=== PATIENT | male | born 1980 | race Caucasian/White ===

== ENCOUNTER 2018-11-04 12:41 | Day surgery (SDC) | payer MEDICARE ==
[~2018-11-04 12:41] MED LIST: BUPIVACAINE HCL 0.25% (2.5MG/ML) PF 30 ML VIAL IJ ONE; HYDROmorphone HCL/PF 1 MG/ML VIAL ONE; IOHEXOL 240 MG/ML BOTTLE 50 ML ONE; LACTATED RINGERS 1,000 ML IV.SOLN IV ONE; LIDOCAINE HCL 1%/EPI. (1:100,000) MDV 20ML VIAL IJ ONE; MIDAZOLAM HCL 2 MG/2 ML VIAL ONE; ceFAZolin SODIUM 1 GM VIAL ONE; fentaNYL CITRATE/PF 100 MCG/2 ML INJ. ONE
[2018-11-04] MEDS ORDERED: HYDROmorphone HCL/PF 1 MG/ML VIAL ONE ×2 (15:26→15:29)
== END 2018-11-04 16:05 | disposition home or self-care (01) ==
LOC: OPSURG 12:41
PROVIDERS: ATTEND Physical Medicine & Rehabilitation
DX: M54.5 Low back pain (principal)
CPT/HCPCS: 62290; 72295; J0690; J1170; J2250; J3010; J7120

== ENCOUNTER 2019-02-13 05:06 | Inpatient (IN) | payer MEDICARE ==
[2019-02-13] MEDS ORDERED: BACITRACIN 50,000 UNIT VIAL IR ONE (08:48)
[2019-02-13] MEDS ORDERED: LABETALOL HCL 20 MG/4 ML SYRINGE IV ONE ×2 (08:48→11:56)
[2019-02-13] MEDS ORDERED: MIDAZOLAM HCL 2 MG/2 ML VIAL ONE (08:48)
[2019-02-13] MEDS ORDERED: LIDOCAINE HCL 2% PF 100MG/5ML VIAL IJ ONE (08:48)
[2019-02-13] MEDS ORDERED: LACTATED RINGERS 1,000 ML IV.SOLN IV ONE ×2 (08:48)
[2019-02-13] MEDS ORDERED: SEVOFLURANE 250 ML LIQUID IH ONE (08:48)
[2019-02-13] MEDS ORDERED: ceFAZolin SODIUM 1 GM VIAL ONE (08:48)
[2019-02-13] MEDS ORDERED: DEXAMETHASONE SODIUM PHOSPHATE 10 MG/ML VIAL ONE (08:48)
[2019-02-13] MEDS ORDERED: THROMBIN (RECOMBINANT) 20,000 UNIT VIAL TP ONE (08:48)
[2019-02-13] MEDS ORDERED: SUGAMMADEX SODIUM 200 MG/2 ML VIAL IV ONE (08:48)
[2019-02-13] MEDS ORDERED: ONDANSETRON HCL/PF 4 MG/ 2ML VIAL ONE (08:48)
[2019-02-13] MEDS ORDERED: GELATIN SPONGE,ABSORB/PORCINE (SIZE 100) 1 EACH SPONGE TP ONE (08:48)
[2019-02-13] MEDS ORDERED: HYDROmorphone HCL/PF 2 MG/ML VIAL ONE (08:48)
[2019-02-13] MEDS ORDERED: ROCURONIUM BROMIDE 10 MG/ML 5ML VIAL ONE (08:48)
[2019-02-13] MEDS ORDERED: PROPOFOL 200 MG/20 ML VIAL IV ONE (08:48)
[2019-02-13] MEDS ORDERED: fentaNYL CITRATE/PF 100 MCG/2 ML INJ. ONE ×2 (08:48→11:36)
[2019-02-13] MEDS ORDERED: 0.9 % SODIUM CHLORIDE 1,000 ML IV SCH ×2 (13:00→13:24)
[2019-02-13] MEDS ORDERED: MORPHINE SULFATE 4 MG/ML VIAL IVP PRN ×2 (13:13→13:24)
[2019-02-13] MEDS ORDERED: ONDANSETRON HCL/PF 4 MG/ 2ML VIAL IVP PRN ×2 (13:13→13:30)
[2019-02-13] MEDS ORDERED: MORPHINE SULFATE 4 MG/ML VIAL IV PRN (13:38)
[2019-02-13] MEDS ORDERED: PROMETHAZINE HCL 25 MG in 0.9 % SODIUM CHLORIDE 50 ML IV PRN (13:38)
[2019-02-13 13:47] VITALS: BMI 74.8
[2019-02-13] MEDS ORDERED: ACETAMINOPHEN 500 MG TABLET ONE (13:52)
[2019-02-13] MEDS ORDERED: ACETAMINOPHEN 500 MG TABLET PO PRN (14:08)
[2019-02-13] MEDS: 0.9 % SODIUM CHLORIDE 1,000 ML IV SCH ×2 (14:11→22:24)
[2019-02-13] MEDS: oxyCODONE HCL 5 MG TABLET PO PRN (15:49)
[2019-02-13 18:19] LABS: BASOPHILS % 0.3 % (0.0-1.5); NEUTROPHILS # 12.6 # k/uL (1.4-7.7)
[2019-02-14] MEDS: oxyCODONE HCL 5 MG TABLET PO PRN ×2 (01:51→09:52)
[2019-02-14] MEDS: 0.9 % SODIUM CHLORIDE 1,000 ML IV SCH (02:52)
[2019-02-14] MEDS ORDERED: ceFAZolin SODIUM 1 GM in 0.9 % SODIUM CHLORIDE 50 ML IV SCH (03:30)
[2019-02-14 05:32] LABS: BASOPHILS % 0.5 % (0.0-1.5)
[2019-02-14 05:33] LABS: NEUTROPHILS # 10.5 # k/uL (1.4-7.7)
--- NOTE | 2019-02-14 07:05 | Discharge Summary ---
Discharge Summary - Discharge [facility] Admission Date: 02/13/19 Discharge Date: 02/14/19 Discharge To: Home History of Present Illness: Patient is a 38-year-old male s/p Lumbar Total Disc Replacement of L4/5. Patient states that he has had low back pain for a very long time. He states that he has been treated with steroid injections, discogram, and pain meds. He will be admitted for pain control, neurovasculars, and monitoring d/t blood loss in surgery. Condition at Discharge: Stable Consultations this Visit: None Procedures this Visit: None Allergies/Adverse Reactions: Allergies Allergy/AdvReac Type Severity Reaction Status Date / Time No Known Allergies Allergy Verified 02/13/19 14:18 Patient Problems: Current Active Problems Problem Status Onset Back pain at L4-L5 level Acute Blood loss Acute Status post lumbar surgery Acute Discharge Summary: Patient has done great during admission- he has been up walking in the hallway without difficulty and independently- denies any numbness or pain to lower extremities. He is tolerating meals, has been urinating, and had a bowel movement. He would like to go home. He will continue to use incentive spirometer, take pain meds as directed, increase water intake, increase fiber, add a stool softener, ambulate often, no lifting over 10 pounds, and he will monitor for symptoms of infection at incision site. Hospital Course: IVF, IV pain meds, PT/OT, Incentive spirmotery; monitoring of CBC - Final Diagnosis (1) Blood loss Problems: Stable- able to go home Right or Left: Right (2) Status post lumbar surgery Problems: Stable; will receive verbal and written instructions pertaining to post lumbar surgery Right or Left: Right
--- NOTE | 2019-02-14 08:16 | History and Physical Report ---
History of Present Illnes - History of Present Illness Reason for Visit: S/P LTDR L4/5 History of Present Illness: Patient is a 38-year-old male s/p Lumbar Total Disc Replacement of L4/5. Patient states that he has had low back pain for a very long time. He states that he has been treated with steroid injections, discogram, and pain meds. He will be admitted for pain control, neurovasculars, and monitoring d/t blood loss in surgery. - Past Medical History Cardiac: Hyperlipidemia GASKET WINDER: Migraine Musculoskeletal: Chronic low back pain, Other (DDD) - Past Surgical History Past Surgical History: Other (RFA, discogram) - Past Family History Mother Family History: CAD - Past Social History Smoke: No (chewing tobacco) Alcohol: None Drugs: None Lives: With Family - Health Maintenance Health Maintenance: Cholesterol Influenza Vaccine: No Pneumonia Vaccine: No Resuscitation Status: Resusciation Status Resuscitation Status Full Code Review of Systems - Review of Systems Constitutional: negative: Fever, Chills Eyes: negative: pain ENT: negative: Ear Pain, Throat Pain Respiratory: negative: Shortness of Breath Cardiovascular: negative: Chest Pain, Light Headedness Gastrointestinal: Abdominal Pain (s/p anterior approach LTDR). negative: Nausea, Vomiting Genitourinary: negative: Dysuria Musculoskeletal: Back Pain Skin: negative: Rash Neurological: negative: Weakness - Medications/Allergies Allergies/Adverse Reactions: Allergies Allergy/AdvReac Type Severity Reaction Status Date / Time No Known Allergies Allergy Verified 02/13/19 14:18 Current Inpatient Medications: Current Inpatient Medications Acetaminophen (Tylenol Extra Strength) 500 mg PO Q4H PRN PRN Reason: MILD PAIN OR TEMP > 101 Stop: 03/15/19 14:07 Last Admin: 02/13/19 14:10 Dose: 500 mg Docusate Sodium (Colace) 100 mg PO BID [facility] Stop: 02/15/19 21:01 Last Admin: 02/14/19 07:58 Dose: 100 mg Cefazolin Sodium 1 gm/ Sodium (Chloride) 50 mls @ 100 mls/hr IV Q8H [facility] Stop: 02/14/19 11:59 Last Admin: 02/14/19 04:38 Dose: 100 mls/hr Sodium Chloride (Normal Saline) 1,000 mls @ 150 mls/hr IV Q8H [facility] Stop: 09/22/19 13:59 Last Admin: 02/14/19 02:52 Dose: 150 mls/hr Promethazine HCl 25 mg/ Sodium (Chloride) 51 mls @ 204 mls/hr IV Q6H PRN PRN Reason: Nausea / Vomiting Stop: 02/16/19 23:59 Morphine Sulfate () 4 mg IV Q2H PRN PRN Reason: Severe Pain (Score 8-10) Stop: 02/14/19 23:59 Last Admin: 02/13/19 18:12 Dose: 4 mg Ondansetron HCl (Zofran) 4 mg IVP Q6H PRN PRN Reason: Nausea / Vomiting Stop: 02/17/19 13:24 Oxycodone HCl (Percolone) 10 mg PO Q4 PRN PRN Reason: For Moderate Pain 5-7 Stop: 03/15/19 13:12 Last Admin: 02/14/19 01:51 Dose: 10 mg Exam - Exam Vital Signs: Vital Signs (72 hours) 02/13/19 02/13/19 02/13/19 12:37 12:41 13:08 Temperature 98.8 F 98.8 F 98.8 F Pulse Rate [ 97 H 97 H 95 H Left] Respiratory 18 18 18 Rate Blood Pressure 139/86 139/86 161/80 [Left Arm] O2 Sat by Pulse 96 96 95 Oximetry 02/13/19 02/13/19 02/13/19 13:46 13:58 14:00 Temperature 100.4 F H 98.8 F Pulse Rate [ 94 H 95 H Left] Respiratory 18 18 Rate Blood Pressure 138/71 142/70 [Left Arm] O2 Sat by Pulse 96 95 96 Oximetry 02/13/19 02/13/19 02/13/19 17:18 21:17 22:00 Temperature 98.3 F 99.5 F Pulse Rate [ 107 H 91 H Left] Respiratory 18 20 20 Rate Blood Pressure 145/84 110/60 [Left Arm] O2 Sat by Pulse 94 93 93 Oximetry 02/14/19 02/14/19 02/14/19 01:58 02:00 05:58 Temperature 100.1 F H Pulse Rate [ 104 H Left] Respiratory 20 20 20 Rate Blood Pressure 122/56 [Left Arm] O2 Sat by Pulse 97 97 Oximetry 02/14/19 06:00 Temperature 98.8 F Pulse Rate [ 86 Left] Respiratory 20 Rate Blood Pressure 131/67 [Left Arm] O2 Sat by Pulse 98 Oximetry General: Alert, Oriented to Person, Oriented to Place, Oriented to Time, Cooperative, Mild distress, Average Body Habits HEENT: Atraumatic, PERRLA, Mouth Mucous membr. moist/[place], Nose Mucous membr. moist/[place] Neck: Normal Range of Motion Carotids: No bruit Lungs: Clear to auscultation, Normal air movement, Speaks full Sentences Cardiovascular: Normal S1, Normal S2, Tachycardia Peripheral Edema: None Peripheral Pulses: 2+ Abdomen: Decreased Bowel Sounds Integumentary: Normal, [place], Warm, Dry, Other (abdominal incision) Extremities: No edema, Normal pulses, No tenderness/swelling Neurological: Normal gait (has already been up walking), Normal speech, Strength Equal Bilat, Normal tone Psych/Mental Status: Mental status NL, Mood NL, Appropriate Affect, Intact Judgment - Laboratory Results Laboratory Results: Laboratory Results 02/13/19 02/14/19 18:00 05:00 WBC 14.40 H 14.50 H RBC 4.47 3.85 L Hgb 13.8 11.7 L Hct 40.1 34.6 L MCV 90.0 90.0 MCH 30.8 30.3 MCHC 34.3 33.8 RDW 12.3 12.5 Plt Count 239 201 Neut % (Auto) 87.8 H 72.7 Lymph % (Auto) 7.5 L 17.7 [place] % (Auto) 3.3 8.2 Eos % (Auto) 1.1 0.9 Baso % (Auto) 0.3 0.5 Neut # (Auto) 12.6 H 10.5 H Lymph # (Auto) 1.1 2.6 [place] # (Auto) 0.5 1.2 H Eos # (Auto) 0.2 0.1 Baso # (Auto) 0.0 0.1 Assessment/Plan - Assessment/Plan (1) Status post lumbar surgery Status: Acute Current Visit: Yes Assessment: Neuovasculars intact x 4 extremities, ambulatory without assist; pain controlled; dressing to incision dry and intact Plan: Will monitor VS and Neurovasculars closely, Incentive spirometer to prevent resp. infection, SCDs while in bed; pain management; PT/OT (2) Back pain at L4-L5 level Status: Acute Current Visit: Yes Assessment: Pain controlled at this time Plan: Pain medication ordered (3) Blood loss Status: Acute Current Visit: Yes Assessment: Patient had blood loss of 800 during surgery; patient is doing well; denies any dizziness or lightheadedness; VSS Plan: Will repeat CBC at 18:00 and in the morning VTE Assessment - RISK FACTOR SCORE VTE RISK FACTOR SCORES: MAJOR SURGERY/ANESTHESIA TIME > 1 HOUR - RISK VTE LOW RISK: SCORE OF 1 OR LESS (RISK PROXIMAL DVT 0.4%) NO PROPHYLAXIS NEEDED (SCDs while in bed; will hold lovenox until 18:00)
[2019-02-14 08:43] VITALS: BP 103/55
[2019-02-14] MEDS ORDERED: DOCUSATE SODIUM 100 MG CAPSULE PO SCH (09:00)
--- NOTE | 2019-04-09 09:12 | Operative Note ---
PROCEDURE DATE: 02/13/2019 PREOPERATIVE DIAGNOSIS: Degenerative disc disease, L4-5. POSTOPERATIVE DIAGNOSIS: Degenerative disc disease, L4-5. PROCEDURES PERFORMED: 1. Retroperitoneal exploration left side with exposure of the anterior lumbar spine at L4-5. 2. Isolation, ligation and division of the left lumbar vein for exposure of the anterior lumbar spine at L4-5. 3. Venolysis of the vena cava, left and right common iliac veins for exposure of the anterior lumbar spine at L4-5. 4. Arteriolysis of the aorta, left and right common iliac arteries for exposure of the anterior lumbar spine at L4-5. 5. Radical anterior lumbar discectomy for herniated nucleus pulposus, L4-5. 6. Insertion of lumbar total disc replacement arthroplasty at the L4-5 level. 7. Intraoperative fluoroscopy and interpretation for needle placement. SURGEON: Cesar Christiansen Jr., M.D. NUT SHELLER: ESTUARDO Mtz BC ANESTHESIA: General. COMPLICATIONS: None. CONDITION FOLLOWING THE PROCEDURE: Good. OPERATIVE FINDINGS: This gentleman has severe degenerative disc disease and positive discography. He has failed conservative treatment for a prolonged period of time and has been weighing a decision regarding arthroplasty versus fusion. He has elected arthroplasty which is carried out today with an extra- large implant which was found to fit well and in the midline. DESCRIPTION OF PROCEDURE: The patient was taken to the operating room and anesthesia induced. In the supine position, the abdomen was thoroughly scrubbed and sterilely prepped and draped. Radiographic azul was made representing the extended center line of the L4-5 disc space. Centered on this location, a 3.5 cm incision was made vertically. Subcutaneous tissue was dissected with electrocautery until the rectus fascia was identified. Just to the left of midline, the rectus fascia was divided superiorly and inferiorly. The rectus muscle was then retracted on the left side to the side and anteriorly, revealing the posterior rectus sheath. At the posterolateral corner of the rectus sheath, the retroperitoneal space was entered and the peritoneum began to be swept superiorly and to the right side. The psoas muscle was encountered and protected. X-rays were taken to confirm localization at the L4-5 level. Retraction of the vena cava, left and right common iliac arteries and veins, and the aorta then began to be retracted to the right side to reveal the disc space at L4-5. It was noted that the L5 left lumbar vein was a restricting structure, thus it was ligated with 2-0 silk and double-clamped before dividing. Once it was divided, there was sufficient mobilization of the left common iliac vein to allow complete retraction and exposure of the intervertebral disc space to be allowed. A midline marker was made and midline was determined and marked with electrocautery on the vertebral body. Electrocautery was then used to perform an annulotomy. Pituitary rongeurs were then used to effect a radical discectomy. Distraction was then made upon the disc space and the endplates were completely curettaged until no cartilage remained. Posteriorly, a combination of curettes and Kerrison rongeurs were used to remove the overhanging osteophytes and to remove the recurrent herniated nucleus pulposus at L4-5. With this accomplished, a sizing device was placed and it was determined a large footplate implant would be required, along with a 10 mm spacer. This was then assembled on the insertion device and driven into position as determined radiographically. The insertion device was removed and copious irrigation carried out prior to placing Gelfoam over the disc space. With the Gelfoam in place, the retractors were gradually removed and the posterior rectus sheath was swept back into its normal position. The anterior rectus sheath was then sutured shut with 0 PDS, 3-0 Vicryl approximated the subcutaneous tissue, and Dermabond approximated the epithelium. The patient then received a dressing, was awakened and taken to the recovery room in good condition. CESAR CHRISTIANSEN JR., M.D. IRINA/stanley (Please copy [facility] provider when applicable) Job #[id number] LINA
== END 2019-02-14 10:30 | disposition home or self-care (01) | DRG 518 ==
LOC: OPSURG 05:06 → SOUTH 12:30
PROVIDERS: ADMIT Nurse Practitioner Family; ATTEND Nurse Practitioner Family
PROC: 0SR20JZ Replacement of Lumbar Vertebral Disc with Synthetic Substitute, Open Approach (ICD-10-PCS; principal; 2019-02-13)
DX: M51.26 Other intervertebral disc displacement, lumbar region (principal); M51.36 Other intervertebral disc degeneration, lumbar region; E78.5 Hyperlipidemia, unspecified; G43.909 Migraine, unspecified, not intractable, without status migrainosus; M19.90 Unspecified osteoarthritis, unspecified site; F17.220 Nicotine dependence, chewing tobacco, uncomplicated; Z79.899 Other long term (current) drug therapy
CPT/HCPCS: 36415; 85025; 86885; 86900; 86901; 86920; 97116; 97161; 97165; 97530; J0690; J1170; J2001; J2250; J2270; J2405; J2704; J3010; J3490; J7030; J7120; 22857; 99024; 99238